=== PATIENT | male | born 1995 | race Two or more races ===

== ENCOUNTER 2018-12-14 10:36 | Day surgery (SDC) | payer OTHER ==
[2018-12-14] VITALS (20 sets, daily range): BP systolic 112–149; BP diastolic 51–78; PULSE 54–90; RESP 12–25; Ht 188 cm; Wt 63.3 kg
[~2018-12-14] VITALS: Ht 188 cm; Wt 63.3 kg
[2018-12-14] MEDS ORDERED: BUPIVACAINE 0.25% (MPF) 30 ML INJ ONE (12:28)
[2018-12-14] MEDS ORDERED: MIDAZOLAM 1 MG/ML 2 ML INJ ONE (12:37)
[2018-12-14] MEDS ORDERED: POLYMYXIN B 500000 UNIT INJ ONE (13:06)
[2018-12-14] MEDS ORDERED: POLYMYXIN/BACITRACIN 1L IRRIG IRR ONE (13:16)
[2018-12-14] MEDS ORDERED: PROPOFOL 20 ML ONE (13:24)
[2018-12-14] MEDS ORDERED: CEFAZOLIN 1 GM INJ ONE (13:24)
[2018-12-14] MEDS ORDERED: ROCURONIUM 50 MG INJ ONE (13:24)
[2018-12-14] MEDS ORDERED: LIDOCAINE 2% (SDV) 5 ML INJ ONE (13:24)
[2018-12-14] MEDS ORDERED: ONDANSETRON 4 MG INJ ONE (13:27)
[2018-12-14] MEDS ORDERED: POLYMYXIN/BACITRACIN 1L IRRIG ONE (13:47)
[2018-12-14] MEDS ORDERED: GLYCOPYRROLATE 0.4 MG INJ ONE (13:48)
[2018-12-14] MEDS ORDERED: NEOSTIGMINE 3 MG/3 ML SYRINGE ONE (13:48)
[2018-12-14] MEDS ORDERED: DIPHENHYDRAMINE 50 MG INJ IV PRN (14:00)
[2018-12-14] MEDS ORDERED: HYDROmorphONE 1 MG/5 ML IV SYRINGE IV PRN ×3 (14:00)
[2018-12-14] MEDS ORDERED: LABETALOL HCL 20MG INJ IV PRN (14:00)
[2018-12-14] MEDS ORDERED: LEVALBUTEROL (NEB) 0.63 MG/3 ML AMP HHN PRN (14:00)
[2018-12-14] MEDS ORDERED: HYDROCODONE/APAP (5/325) TAB PO ONE (14:00)
[2018-12-14] MEDS ORDERED: KETOROLAC 15 MG INJ IV PRN (14:00)
[2018-12-14] MEDS ORDERED: morphine 2 MG INJ IV PRN ×2 (14:00)
[2018-12-14] MEDS ORDERED: ONDANSETRON 4 MG INJ IV PRN (14:00)
[2018-12-14] MEDS ORDERED: EPHEDrine 25 MG/5 ML SYG IV PRN (14:00)
[2018-12-14] MEDS ORDERED: hydrALAzine 20 MG INJ IV PRN (14:00)
[2018-12-14] MEDS ORDERED: OXYCODONE/ACETAMINOPHEN (5/325) TAB PO PRN ×2 (14:00)
[2018-12-14] MEDS ORDERED: ATROPINE 1 MG/10 ML SYRINGE IV PRN (14:00)
[2018-12-14] MEDS ORDERED: FENTAnyl 50 MCG/ML VIAL IV PRN ×2 (14:00)
[2018-12-14] MEDS ORDERED: ALBUTEROL 0.083% (NEB) 2.5 MG/3 ML AMP HHN PRN (14:00)
[2018-12-14] MEDS ORDERED: MEPERIDINE 25 MG INJ ONE (14:17)
[2018-12-14] MEDS ORDERED: MEPERIDINE 25 MG INJ IV PRN (14:30)
== END 2018-12-14 16:10 | disposition home or self-care (01) ==
LOC: SDS 10:36
PROVIDERS: ATTEND Surgery
DX: K40.90 Unilateral inguinal hernia, without obstruction or gangrene, not specified as recurrent (principal)
CPT/HCPCS: 49507; J0690; J2175; J2250; J2405; J2710; J3010; Z7610; C1781